=== PATIENT | female | born 1955 | race Caucasian/White ===

== ENCOUNTER 2019-10-18 10:25 | Observation (INO) ==
[2019-10-18] MEDS ORDERED: Ringers Solution, Lactated 1,000 ML IVC SCH (11:00)
[2019-10-18] MEDS ORDERED: Clindamycin 900 MG/50 ML 900 MG/50 ML IV.SOLN IVPB ONE (11:13)
[2019-10-18] MEDS ORDERED: Ondansetron 4 MG/2 ML VIAL IVP ONE (12:19)
[2019-10-18] MEDS ORDERED: *HR* OxyCODONE Immed Rel 5 MG TABLET PO PRN (12:19)
[2019-10-18] MEDS ORDERED: *HR* HYDROmorphone PF 0.5 MG/0.5 ML SYRINGE IVP PRN (12:19)
[2019-10-18] MEDS ORDERED: Total Joint Mixture (50 ml) INTRAART ONE (12:30)
[2019-10-18] MEDS ORDERED: Acetaminophen 325 MG TABLET PO PRN (12:41)
[2019-10-18] MEDS ORDERED: Ondansetron 4 MG/2 ML VIAL IVP PRN (12:45)
[2019-10-18] MEDS ORDERED: Morphine Sulfate 2 MG/ML SYRINGE IVP PRN (12:47)
[2019-10-18] MEDS ORDERED: *HR* FentaNYL (PF) 100 MCG/2 ML VIAL ONE (12:47)
[2019-10-18] MEDS ORDERED: *HR* Midazolam HCl 2 MG/2 ML VIAL ONE (12:48)
[2019-10-18] MEDS ORDERED: *HR* Propofol 200 MG/20 ML VIAL IVP ONE (12:50)
[2019-10-18] MEDS ORDERED: Lidocaine -MPF 2% 2 ML VIAL ONE (12:51)
[2019-10-18] MEDS ORDERED: Ropivacaine/PF 0.5% 30 ML VIAL ONE (12:54)
[2019-10-18] MEDS ORDERED: ROPIVACAINE/PF/NS 0.25% 1 EACH SYRINGE INTRAART ONE (12:55)
[2019-10-18] MEDS ORDERED: Bupivacaine/EPI 1:200k 0.25%PF 30 ML VIAL ONE (13:36)
[2019-10-18] MEDS ORDERED: EPHEDrine 50 MG/ML VIAL ONE (13:43)
[2019-10-18] MEDS ORDERED: Dexamethasone 4 MG/ML VIAL ONE (13:59)
[2019-10-18] MEDS ORDERED: Ondansetron 4 MG/2 ML VIAL ONE ×2 (13:59→16:03)
[2019-10-18] MEDS: Clindamycin 600 MG/50 ML 600 MG/50 ML IV.SOLN IVPB SCH (18:04)
[2019-10-18] MEDS: BuPROPion XL (24 HR) 150 MG TABLET PO SCH (18:04)
[2019-10-18] MEDS: Gabapentin 400 MG CAPSULE PO SCH ×2 (18:04→20:14)
[2019-10-18] MEDS ORDERED: *HR* Acetaminophen w/Cod 300-30 mg 1 TAB TABLET PO PRN (18:21)
[2019-10-18] MEDS ORDERED: cloZAPine 100 MG TABLET PO SCH (21:00)
[2019-10-19] MEDS: Clindamycin 600 MG/50 ML 600 MG/50 ML IV.SOLN IVPB SCH ×3 (00:34→15:25)
[2019-10-19] MEDS ORDERED: *HR* Enoxaparin 40 MG/0.4 ML SYRINGE SQ SCH (06:00)
[2019-10-19] MEDS: Gabapentin 400 MG CAPSULE PO SCH ×3 (08:07→21:01)
[2019-10-19] MEDS: BuPROPion XL (24 HR) 150 MG TABLET PO SCH (08:08)
[2019-10-19] MEDS ORDERED: Fluticasone Propionate Nasal 50 MCG/SPRAY BOTTLE NS SCH (09:00)
[2019-10-19] MEDS ORDERED: Multivit/Ca/Min/Fe/FA 1 TAB TABLET PO SCH (09:00)
[2019-10-19] MEDS ORDERED: Folic Acid 1 MG TABLET PO SCH (09:00)
[2019-10-19] MEDS ORDERED: Cholecalciferol (D-3) 1,000 UNIT (25MCG) TABLET PO SCH (09:00)
[2019-10-19] MEDS ORDERED: FLUoxetine HCl Oral Soln 20 MG/5 ML UDC PO SCH (09:00)
[2019-10-19] MEDS ORDERED: Aspirin 81 MG TAB.CHEW PO SCH (09:00)
[2019-10-19] MEDS ORDERED: Ondansetron 4 MG/2 ML VIAL IVP PRN (09:22)
[2019-10-19] MEDS ORDERED: Ropivacaine/PF 0.5% 24.62 ML, EPINEPHrine 0.25 MG, cloNIDine 0.04 MG, Ketorolac 15 MG, ... INTRAART ONE (09:22)
[2019-10-19] MEDS ORDERED: Acetaminophen 325 MG TABLET PO PRN (09:22)
[2019-10-19] MEDS: Morphine Sulfate 2 MG/ML SYRINGE IVP PRN ×2 (12:35→16:44)
[2019-10-19] MEDS: cloZAPine 100 MG TABLET PO SCH (21:01)
[2019-10-20] MEDS: Clindamycin 600 MG/50 ML 600 MG/50 ML IV.SOLN IVPB SCH ×4 (02:20→23:06)
[2019-10-20] MEDS: *HR* Enoxaparin 40 MG/0.4 ML SYRINGE SQ SCH (05:12)
[2019-10-20] MEDS: *HR* Acetaminophen w/Cod 300-30 mg 1 TAB TABLET PO PRN ×3 (05:12→17:04)
[2019-10-20] MEDS: Cholecalciferol (D-3) 1,000 UNIT (25MCG) TABLET PO SCH (09:42)
[2019-10-20] MEDS: FLUoxetine HCl Oral Soln 20 MG/5 ML UDC PO SCH (09:42)
[2019-10-20] MEDS: Multivit/Ca/Min/Fe/FA 1 TAB TABLET PO SCH (09:44)
[2019-10-20] MEDS: Gabapentin 400 MG CAPSULE PO SCH ×3 (09:44→19:31)
[2019-10-20] MEDS: Folic Acid 1 MG TABLET PO SCH (09:44)
[2019-10-20] MEDS: Aspirin 81 MG TAB.CHEW PO SCH (09:45)
[2019-10-20] MEDS: BuPROPion XL (24 HR) 150 MG TABLET PO SCH (09:45)
[2019-10-20] MEDS: Fluticasone Propionate Nasal 50 MCG/SPRAY BOTTLE NS SCH (12:11)
[2019-10-20] MEDS: cloZAPine 100 MG TABLET PO SCH (19:31)
[2019-10-21] MEDS: *HR* Enoxaparin 40 MG/0.4 ML SYRINGE SQ SCH (05:09)
[2019-10-21] MEDS: Clindamycin 600 MG/50 ML 600 MG/50 ML IV.SOLN IVPB SCH ×3 (08:07→23:13)
[2019-10-21] MEDS: Cholecalciferol (D-3) 1,000 UNIT (25MCG) TABLET PO SCH (08:08)
[2019-10-21] MEDS: Gabapentin 400 MG CAPSULE PO SCH ×3 (08:08→20:04)
[2019-10-21] MEDS: Folic Acid 1 MG TABLET PO SCH (08:08)
[2019-10-21] MEDS: Multivit/Ca/Min/Fe/FA 1 TAB TABLET PO SCH (08:08)
[2019-10-21] MEDS: BuPROPion XL (24 HR) 150 MG TABLET PO SCH (08:09)
[2019-10-21] MEDS: Aspirin 81 MG TAB.CHEW PO SCH (08:09)
[2019-10-21] MEDS: Morphine Sulfate 2 MG/ML SYRINGE IVP PRN (08:09)
[2019-10-21] MEDS: FLUoxetine HCl Oral Soln 20 MG/5 ML UDC PO SCH (08:09)
[2019-10-21] MEDS: Fluticasone Propionate Nasal 50 MCG/SPRAY BOTTLE NS SCH (15:43)
[2019-10-21] MEDS: carvediloL 6.25 MG TABLET PO SCH (17:32)
[2019-10-21] MEDS: cloZAPine 100 MG TABLET PO SCH (20:04)
[2019-10-21] MEDS: *HR* Acetaminophen w/Cod 300-30 mg 1 TAB TABLET PO PRN (20:07)
[2019-10-22] MEDS: *HR* Enoxaparin 40 MG/0.4 ML SYRINGE SQ SCH (05:07)
[2019-10-22] MEDS: Cholecalciferol (D-3) 1,000 UNIT (25MCG) TABLET PO SCH (07:39)
[2019-10-22] MEDS: Aspirin 81 MG TAB.CHEW PO SCH (07:39)
[2019-10-22] MEDS: Clindamycin 600 MG/50 ML 600 MG/50 ML IV.SOLN IVPB SCH ×2 (07:39→14:45)
[2019-10-22] MEDS: Multivit/Ca/Min/Fe/FA 1 TAB TABLET PO SCH (07:39)
[2019-10-22] MEDS: FLUoxetine HCl Oral Soln 20 MG/5 ML UDC PO SCH (07:39)
[2019-10-22] MEDS: Gabapentin 400 MG CAPSULE PO SCH ×3 (07:39→21:03)
[2019-10-22] MEDS: carvediloL 6.25 MG TABLET PO SCH ×2 (07:39→17:04)
[2019-10-22] MEDS: BuPROPion XL (24 HR) 150 MG TABLET PO SCH (07:39)
[2019-10-22] MEDS: Folic Acid 1 MG TABLET PO SCH (07:39)
[2019-10-22] MEDS: Fluticasone Propionate Nasal 50 MCG/SPRAY BOTTLE NS SCH (11:19)
[2019-10-22] MEDS: *HR* Acetaminophen w/Cod 300-30 mg 1 TAB TABLET PO PRN (14:45)
[2019-10-22] MEDS: cloZAPine 100 MG TABLET PO SCH (21:03)
[2019-10-22] MEDS: Doxycycline 100 MG CAPSULE PO SCH (21:03)
[2019-10-23] MEDS: *HR* Enoxaparin 40 MG/0.4 ML SYRINGE SQ SCH (05:51)
[2019-10-23] MEDS: Folic Acid 1 MG TABLET PO SCH (07:43)
[2019-10-23] MEDS: Multivit/Ca/Min/Fe/FA 1 TAB TABLET PO SCH (07:44)
[2019-10-23] MEDS: carvediloL 6.25 MG TABLET PO SCH ×2 (07:44→16:29)
[2019-10-23] MEDS: BuPROPion XL (24 HR) 150 MG TABLET PO SCH (07:44)
[2019-10-23] MEDS: Aspirin 81 MG TAB.CHEW PO SCH (07:44)
[2019-10-23] MEDS: Doxycycline 100 MG CAPSULE PO SCH (07:44)
[2019-10-23] MEDS: Cholecalciferol (D-3) 1,000 UNIT (25MCG) TABLET PO SCH (07:44)
[2019-10-23] MEDS: Gabapentin 400 MG CAPSULE PO SCH ×2 (07:45→16:29)
[2019-10-23] MEDS: FLUoxetine HCl Oral Soln 20 MG/5 ML UDC PO SCH (07:45)
[2019-10-23] MEDS: Fluticasone Propionate Nasal 50 MCG/SPRAY BOTTLE NS SCH (07:51)
[2019-10-23] MEDS: Morphine Sulfate 2 MG/ML SYRINGE IVP PRN (10:14)
[2019-10-23 15:43] VITALS: BP 146/76
== END 2019-10-23 18:25 ==
LOC: 3NENU 10:25 → SAMDAY 10:25 → 3NENU 17:01
PROVIDERS: ADMIT Podiatrist; ATTEND Podiatrist